=== PATIENT | male | born 1940 ===

== ENCOUNTER 2017-11-03 10:14 | Emergency (ER) | payer OTHER ==
[~2017-11-03] VITALS: Ht 165.1 cm; Wt 96.6 kg
== END 2017-11-04 09:32 | disposition home or self-care (01) ==
LOC: ER 10:14
DX: J11.1 Influenza due to unidentified influenza virus with other respiratory manifestations (principal); R06.02 Shortness of breath; R05 Cough; R53.81 Other malaise